=== PATIENT | female | born 1990 | race Caucasian/White ===

== ENCOUNTER 2023-10-09 17:59 | Emergency (ER) | payer OTHER ==
[2023-10-09 18:30] VITALS: RESP 18; BMI 29.4
[2023-10-09 20:42] LABS: BASO % 0.6 % (0-2.0); EOS % 0.8 % (0-4.5); HEMATOCRIT 41.9 % (32.4-45.2); HEMOGLOBIN 14.1 GM/dL (10.7-15.3); LYMPH % 27.3 % (8-40); MCH 30.9 pg (25.7-33.7); MCHC 33.7 g/dl (32.0-36.0); MEAN CELL VOLUME 91.9 fl (80-96); MEAN PLT VOLUME 8.7 fl (7.5-11.1); MONO % 5.9 % (3.8-10.2); NEUT % 65.4 % (42.8-82.8); PLATELET COUNT 303 10^3/uL (134-434); RBC 4.56 M/mm3 (3.60-5.2); RDW 13.1 % (11.6-15.6)
[2023-10-09 20:53] LABS: HCG,QUALITATIVE URINE Negative
[2023-10-09 20:54] LABS: PH,URINE 7.5 (5.0-8.0); URINE APPEARANCE CLEAR; URINE BILIRUBIN NEGATIVE (NEGATIVE); URINE COLOR YELLOW; URINE GLUCOSE (UA) NEGATIVE (NEGATIVE); URINE KETONE NEGATIVE (NEGATIVE); URINE LEUK ESTERASE NEGATIVE (NEGATIVE); URINE NITRITE NEGATIVE (NEGATIVE); URINE PROTEIN NEGATIVE (NEGATIVE); URINE UROBILINOGEN 0.2 mg/dL (0.2-1.0)
[2023-10-09 21:03] LABS: POTASSIUM 4.3 mmol/L (3.5-5.1)
[2023-10-09 21:05] LABS: CALCIUM 8.4 mg/dL (8.5-10.1)
[2023-10-09 21:09] LABS: CREATININE 0.6 mg/dL (0.55-1.3)
[2023-10-09 21:10] LABS: TOT PROT 7.8 g/dl (6.4-8.2)
[2023-10-09 21:11] LABS: BILIRUBIN,TOTAL 0.4 mg/dL (0.2-1)
[2023-10-09 22:40] VITALS: BP 113/72; PULSE 70; TEMP 98
== END 2023-10-09 22:40 | disposition home or self-care (01) ==
LOC: JER 17:59
DX: R20.2 Paresthesia of skin (principal)
CPT/HCPCS: 36415; 80053; 81003; 84703; 85025; 99285-25